=== PATIENT | female | born 1990 | race African-American/Black ===

== ENCOUNTER 2024-11-23 17:20 | Emergency (ER) | payer SELFPAY ==
[~2024-11-23] VITALS: Ht 167.6 cm; Wt 55.0 kg
[2024-11-23 17:52] VITALS: O2SAT 100
[2024-11-23 20:08] LABS: HCG SCREEN NEGATIVE
[2024-11-23] MEDS: ACETAMINOPHEN 325MG TABLET PO ONE (20:15)
[2024-11-23] MEDS ORDERED: CYCL10TA21 MT (20:39)
[2024-11-23 20:50] VITALS: TEMP 37.1; O2SAT 100
[2024-11-23 20:53] VITALS: BP 119/59; PULSE 97; RESP 16
[2024-11-23] MEDS: KETOROLAC 15MG/ML VIAL IM ONE (20:53)
[2024-11-23] MEDS: LIDOCAINE 5% PATCH TOP SCH (20:53)
== END 2024-11-23 20:54 | disposition home or self-care (01) ==
LOC: ER 17:20
DX: M62.838 Other muscle spasm (principal); Z86.018 Personal history of other benign neoplasm; Z88.5 Allergy status to narcotic agent; Z98.84 Bariatric surgery status; V43.52XA Car driver injured in collision with other type car in traffic accident, initial encounter; Y93.89 Activity, other specified; Y92.410 Unspecified street and highway as the place of occurrence of the external cause; Y99.8 Other external cause status
CPT/HCPCS: 84703; 72125; 99284; J1885; Z7610; 99283